=== PATIENT | male | born 1985 | race Caucasian/White ===

== ENCOUNTER → 2023-02-18 | Outpatient (CLI) | payer OTHER, SELFPAY ==
[2023-02-18 13:44] LABS: BILIRUBIN,DIRECT 0.2 MG/DL (<0.4); BILIRUBIN,TOTAL 0.6 MG/DL (0.3-1.2)
== END ==
LOC: M LAB 12:22
PROVIDERS: ATTEND Nurse Practitioner Family
DX: F10.20 Alcohol dependence, uncomplicated (principal)

== ENCOUNTER → 2023-03-02 | Outpatient (CLI) | payer OTHER ==
[2023-03-02 13:00] LABS: BILIRUBIN,DIRECT 0.2 MG/DL (<0.4); BILIRUBIN,TOTAL 0.6 MG/DL (0.3-1.2); TOTAL PROTEIN 6.8 G/DL (5.7-8.2)
== END ==
LOC: M LAB 11:42
PROVIDERS: ATTEND Nurse Practitioner Family
DX: F10.20 Alcohol dependence, uncomplicated (principal)

== ENCOUNTER → 2023-05-14 | Outpatient (CLI) | payer MEDICAID, OTHER ==
[2023-05-14 16:30] LABS: ALBUMIN 3.9 G/DL (3.2-5.2); BILIRUBIN,DIRECT 0.1 MG/DL (<0.4); BILIRUBIN,TOTAL 0.4 MG/DL (0.3-1.2); TOTAL PROTEIN 6.8 G/DL (5.7-8.2)
== END ==
LOC: M LAB 15:32
PROVIDERS: ATTEND Nurse Practitioner Family
DX: F41.1 Generalized anxiety disorder (principal); F10.20 Alcohol dependence, uncomplicated

== ENCOUNTER 2023-09-08 18:44 | Emergency (ER) | payer OTHER ==
[~2023-09-08] VITALS: Ht 162.6 cm; Wt 68.2 kg
[~2023-09-08 18:44] MED LIST: CHLO25CA PO
[2023-09-08] MEDS ORDERED: MED REC IN PROGRESS XX SCH (19:15)
[2023-09-08] MEDS ORDERED: LORazepam 2 MG/ML 1ML VIAL IM ONE (19:15)
[2023-09-08] MEDS ORDERED: HALOPERIDOL 5MG/ML 1ML VIAL IM ONE (19:15)
[2023-09-08 20:03] LABS: AMPHETAMINES LEVEL URINE NEGATIVE (NEGATIVE); BARBITURATES URINE NEGATIVE (NEGATIVE); COCAINE METABOLITE URINE NEGATIVE (NEGATIVE)
[2023-09-08 20:04] LABS: BENZODIAZEPINES URINE POSITIVE (NEGATIVE); CANNABINOIDS URINE POSITIVE (NEGATIVE); HEMATOCRIT 51.3 % (42.0-52.0); HEMOGLOBIN 17.5 g/dl (13.5-17.5); MEAN CORPUSCULAR HEMOGLOBIN 29.7 pg (27.0-33.0); MEAN CORPUSCULAR HGB CONC 34.1 g/dl (32.0-36.5); MEAN CORPUSCULAR VOLUME 87.1 fl (80.0-96.0); METHADONE URINE NEGATIVE (NEGATIVE); OPIATES URINE NEGATIVE (NEGATIVE); PHENCYCLIDINE URINE NEGATIVE (NEGATIVE); PLATELET COUNT, AUTOMATED 280 10^3/uL (150-450); RED BLOOD COUNT 5.89 10^6/uL (4.30-6.10); WHITE BLOOD COUNT 8.3 10^3/uL (4.0-10.0)
[2023-09-08 20:06] LABS: ETHYL ALCOHOL (ETHANOL) 0.295 % (0.000-0.010)
[2023-09-08 20:07] LABS: ALBUMIN 4.4 G/DL (3.2-5.2); ALKALINE PHOSPHATASE 87 U/L (46-116); ALT/SGPT 31 U/L (7.0-40); AST/SGOT 34 U/L (<34); BILIRUBIN,DIRECT 0.1 MG/DL (<0.4); BILIRUBIN,TOTAL 0.4 MG/DL (0.3-1.2); BLOOD UREA NITROGEN 14 MG/DL (9-23); CALCIUM LEVEL 9.5 MG/DL (8.5-10.1); CARBON DIOXIDE LEVEL 29 MMOL/L (20-31); CHLORIDE LEVEL 102 MMOL/L (98-107); CREATININE FOR GFR 0.81 MG/DL (0.70-1.30); GLOMERULAR FILTRATION RATE > 60.0 (>60); GLUCOSE, FASTING 90 MG/DL (60-100); SALICYLATE LEVEL < 3.0 MG/DL (<30); SODIUM LEVEL 140 MMOL/L (136-145); TOTAL PROTEIN 8.3 G/DL (5.7-8.2)
[2023-09-09] MEDS ORDERED: OXAZEPAM 15MG CAP PO ONE ×2 (06:35→15:30)
[2023-09-09] MEDS ORDERED: MULTIVITAMINS/MINERALS THERAP 1 TAB PO SCH (09:00)
[2023-09-09] MEDS ORDERED: THIAMINE 100 MG TAB PO SCH (09:00)
[2023-09-09] MEDS ORDERED: FOLIC ACID 1MG TAB PO SCH (09:00)
[2023-09-09] MEDS ORDERED: HOME MED LIST COMPLETE! XX SCH (09:50)
[2023-09-09] MEDS ORDERED: GABA600T4 PO (10:06)
[2023-09-09] MEDS ORDERED: MIRT-60 PO (10:06)
[2023-09-09] MEDS ORDERED: ACAM0.05 PO (10:07)
[2023-09-09] MEDS ORDERED: NALT50TA4 PO (10:07)
[2023-09-09] MEDS: GABAPENTIN 300 MG CAP PO SCH ×2 (10:40→16:00)
[2023-09-09] MEDS ORDERED: LORazepam 2 MG TAB PO PRN (13:40)
[2023-09-09 16:34] VITALS: BP 148/82; TEMP 98.5; O2SAT 98
== END 2023-09-09 16:16 | disposition home or self-care (01) ==
LOC: M ED 18:44
DX: F10.10 Alcohol abuse, uncomplicated (principal); F19.10 Other psychoactive substance abuse, uncomplicated; F32.A Depression, unspecified; Z79.891 Long term (current) use of opiate analgesic; Z79.899 Other long term (current) drug therapy
CPT/HCPCS: 80048; 80076; 80143; 80307; 82077; 84443; 85027; 87635; 96374; 96375; 99285; J1630; J2060

== ENCOUNTER 2023-09-21 23:22 | Inpatient (IN) | payer BC, OTHER ==
[~2023-09-21] VITALS: Ht 172.7 cm; Wt 71.9 kg
[~2023-09-21 23:22] MED LIST changes: +ACAM0.05 PO; +GABA600T4 PO; +MIRT-60 PO; +NALT50TA4 PO
[2023-09-21] MEDS ORDERED: NS 1,000 ML IV ONE (23:35)
[2023-09-22 00:08] LABS: BASO # 0.1 10^3/uL (0.0-0.2); BASO % 0.8 % (0.0-1.0); EOS # 0.1 10^3/uL (0.0-0.5); HEMATOCRIT 43.2 % (42.0-52.0); LYMPH # 2.7 10^3/uL (1.5-5.0); LYMPH % 34.6 % (24.0-44.0); MEAN CORPUSCULAR HEMOGLOBIN 30.1 pg (27.0-33.0); MEAN CORPUSCULAR HGB CONC 34.7 g/dl (32.0-36.5); MEAN CORPUSCULAR VOLUME 86.7 fl (80.0-96.0); MONO # 0.7 10^3/uL (0.0-0.8); NEUTROPHILS # 4.2 10^3/uL (1.5-8.5); NEUTROPHILS % 53.5 % (36.0-66.0); PLATELET COUNT, AUTOMATED 216 10^3/uL (150-450); RED BLOOD COUNT 4.98 10^6/uL (4.30-6.10); WHITE BLOOD COUNT 7.9 10^3/uL (4.0-10.0)
[2023-09-22 00:26] LABS: CPK CREATINE PHOSPHOKINASE 342 U/L (46-171); SALICYLATE LEVEL < 3.0 MG/DL (<30)
[2023-09-22 00:27] LABS: ALBUMIN 3.6 G/DL (3.2-5.2); ALKALINE PHOSPHATASE 101 U/L (46-116); ALT/SGPT 29 U/L (7.0-40); AST/SGOT 42 U/L (<34); BILIRUBIN,DIRECT 0.1 MG/DL (<0.4); BILIRUBIN,TOTAL 0.5 MG/DL (0.3-1.2); BLOOD UREA NITROGEN 14 MG/DL (9-23); CALCIUM LEVEL 8.2 MG/DL (8.5-10.1); CARBON DIOXIDE LEVEL 26 MMOL/L (20-31); CHLORIDE LEVEL 104 MMOL/L (98-107); CREATININE FOR GFR 0.82 MG/DL (0.70-1.30); GLOMERULAR FILTRATION RATE > 60.0 (>60); GLUCOSE, FASTING 116 MG/DL (60-100); POTASSIUM SERUM 3.7 MMOL/L (3.5-5.1); SODIUM LEVEL 140 MMOL/L (136-145)
[2023-09-22 00:29] LABS: THYROID STIMULATING HORMONE 2.404 uIU/ML (0.55-4.78)
[2023-09-22 00:57] LABS: ETHYL ALCOHOL (ETHANOL) 0.351 % (0.000-0.010)
[2023-09-22] MEDS ORDERED: LORazepam 2 MG/ML 1ML VIAL IV STA (01:59)
[2023-09-22 03:20] LABS: AMPHETAMINES LEVEL URINE NEGATIVE (NEGATIVE); BARBITURATES URINE NEGATIVE (NEGATIVE); BENZODIAZEPINES URINE NEGATIVE (NEGATIVE); COCAINE METABOLITE URINE NEGATIVE (NEGATIVE); METHADONE URINE NEGATIVE (NEGATIVE); OPIATES URINE NEGATIVE (NEGATIVE); PHENCYCLIDINE URINE NEGATIVE (NEGATIVE)
[2023-09-22 03:30] LABS: CANNABINOIDS URINE POSITIVE (NEGATIVE)
[2023-09-22] MEDS ORDERED: OXAZEPAM 15MG CAP PO ONE ×2 (08:45→16:50)
[2023-09-22] MEDS ORDERED: DIVA250T67 PO (11:00)
[2023-09-22] MEDS ORDERED: LORazepam 1 MG TAB PO ONE (11:05)
[2023-09-22] MEDS ORDERED: HOME MED LIST COMPLETE! XX SCH (11:15)
[2023-09-22] MEDS ORDERED: MAALOX 30 ML SUSP *UDC PO PRN (13:00)
[2023-09-22] MEDS ORDERED: MOM 30ML SUSPENSION UDC PO PRN (13:00)
[2023-09-22] MEDS ORDERED: ACETAMINOPHEN TAB 650MG DOSE (2X325MG) PO PRN (13:00)
[2023-09-22] MEDS: IBUPROFEN 400MG TAB PO PRN (14:22)
[2023-09-22] MEDS: MULTIVITAMINS/MINERALS THERAP 1 TAB PO SCH (14:22)
[2023-09-22] MEDS: LORazepam 2 MG TAB PO PRN ×5 (14:22→20:46)
[2023-09-22] MEDS: FOLIC ACID 1MG TAB PO SCH (14:22)
[2023-09-22] MEDS: THIAMINE 100 MG TAB PO SCH ×2 (14:23→21:04)
[2023-09-22] MEDS: diphenhydrAMINE 25MG CAP PO PRN (21:04)
[2023-09-22 21:23] VITALS: BP 137/86; TEMP 98.3; O2SAT 98
[2023-09-22 21:38] VITALS: BP 137/86
[2023-09-22] MEDS: OXAZEPAM 15MG CAP PO SCH (22:03)
[2023-09-22] MEDS: traZODone 50 MG TAB PO PRN (22:04)
[2023-09-23] VITALS (13 sets, daily range): BP systolic 111–144; BP diastolic 67–100; TEMP 97.9–99.2; O2SAT 95–100
[2023-09-23] MEDS: OXAZEPAM 15MG CAP PO SCH (04:53)
[2023-09-23] MEDS: LORazepam 2 MG TAB PO PRN ×5 (06:14→21:32)
[2023-09-23] MEDS: THIAMINE 100 MG TAB PO SCH ×2 (09:00→21:03)
[2023-09-23] MEDS: MULTIVITAMINS/MINERALS THERAP 1 TAB PO SCH (09:00)
[2023-09-23] MEDS ORDERED: chlordiazePOXIDE 25 MG CAP PO SCH ×2 (09:00→18:00)
[2023-09-23] MEDS: FOLIC ACID 1MG TAB PO SCH (09:04)
[2023-09-23] MEDS: GABAPENTIN 300 MG CAP PO SCH ×3 (09:55→21:04)
[2023-09-23] MEDS ORDERED: LORazepam 2 MG TAB PO ONE (10:00)
[2023-09-23] MEDS ORDERED: ISOVUE-370 76% 100ML VIAL As Ordered ONE (12:46)
[2023-09-23] MEDS ORDERED: chlordiazePOXIDE 25 MG CAP PO ONE (16:00)
[2023-09-23] MEDS: MIRTAZAPINE 15 MG TAB PO SCH (21:04)
[2023-09-23] MEDS: DIVALPROEX 250MG TAB PO SCH (21:04)
[2023-09-23] MEDS: IBUPROFEN 400MG TAB PO PRN (21:33)
[2023-09-23] MEDS: chlordiazePOXIDE 25 MG CAP PO SCH (23:01)
[2023-09-23 23:10] LABS: CK-MB VALUE MASS 1.3 NG/ML (<3.6)
[2023-09-23 23:12] LABS: CPK CREATINE PHOSPHOKINASE 177 U/L (46-171); MB/CK RELATIVE INDEX 0.73 (< OR =4)
[2023-09-24 01:45] VITALS: BP 126/78; TEMP 97.8; O2SAT 96
[2023-09-24] MEDS: chlordiazePOXIDE 25 MG CAP PO SCH ×4 (05:02→23:09)
[2023-09-24 05:45] VITALS: BP 120/72; TEMP 97.9; O2SAT 98
[2023-09-24 06:58] LABS: CHOLESTEROL RISK RATIO 3.32 (<5); HDL CHOLESTEROL 70.6 MG/DL (>40); LDL CHOLESTEROL 97.6 MG/DL (<100); NON-HDL-C 164.4 MG/DL
[2023-09-24 06:59] LABS: CK-MB VALUE MASS < 1.0 NG/ML (<3.6)
[2023-09-24 07:05] LABS: CPK CREATINE PHOSPHOKINASE 137 U/L (46-171); MB/CK RELATIVE INDEX 0.72 (< OR =4)
[2023-09-24] MEDS: THIAMINE 100 MG TAB PO SCH ×2 (09:12→21:03)
[2023-09-24] MEDS: GABAPENTIN 300 MG CAP PO SCH ×3 (09:12→21:03)
[2023-09-24] MEDS: FOLIC ACID 1MG TAB PO SCH (09:12)
[2023-09-24] MEDS: PANTOPRAZOLE 40MG TAB (PROTONIX) PO SCH (09:12)
[2023-09-24] MEDS: MULTIVITAMINS/MINERALS THERAP 1 TAB PO SCH (09:12)
[2023-09-24 10:11] LABS: ALBUMIN 3.7 G/DL (3.2-5.2); ALKALINE PHOSPHATASE 96 U/L (46-116); ALT/SGPT 25 U/L (7.0-40); AST/SGOT 40 U/L (<34); BILIRUBIN,DIRECT 0.2 MG/DL (<0.4); BILIRUBIN,TOTAL 0.8 MG/DL (0.3-1.2); TOTAL PROTEIN 7.1 G/DL (5.7-8.2)
[2023-09-24 14:00] VITALS: BP 120/72
[2023-09-24 17:08] VITALS: BP 150/96; TEMP 98.6; O2SAT 96
[2023-09-24] MEDS: DIVALPROEX 250MG TAB PO SCH (21:03)
[2023-09-24] MEDS: MIRTAZAPINE 15 MG TAB PO SCH (21:03)
[2023-09-24 22:00] VITALS: BP 118/73; TEMP 98.2; O2SAT 100
[2023-09-25] MEDS: chlordiazePOXIDE 25 MG CAP PO SCH ×4 (05:49→23:00)
[2023-09-25 06:33] VITALS: BP 100/53; TEMP 97.2
[2023-09-25 06:55] VITALS: BP 100/53
[2023-09-25] MEDS: GABAPENTIN 300 MG CAP PO SCH ×3 (09:04→21:34)
[2023-09-25] MEDS: MULTIVITAMINS/MINERALS THERAP 1 TAB PO SCH (09:04)
[2023-09-25] MEDS: FOLIC ACID 1MG TAB PO SCH (09:05)
[2023-09-25] MEDS: PANTOPRAZOLE 40MG TAB (PROTONIX) PO SCH (09:05)
[2023-09-25] MEDS: ACAMPROSATE CALCIUM 333MG TABLET (CAMPRAL) PO SCH ×2 (09:36→21:35)
[2023-09-25 14:00] VITALS: BP 138/94; TEMP 97.8; O2SAT 100
[2023-09-25 14:12] VITALS: BP 138/94
[2023-09-25] MEDS: MIRTAZAPINE 15 MG TAB PO SCH (21:34)
[2023-09-25] MEDS: DIVALPROEX 250MG TAB PO SCH (21:34)
[2023-09-25 22:00] VITALS: BP 138/94
[2023-09-25] MEDS: traZODone 50 MG TAB PO PRN (22:51)
[2023-09-25] MEDS: diphenhydrAMINE 25MG CAP PO PRN (22:51)
[2023-09-26] MEDS: chlordiazePOXIDE 25 MG CAP PO SCH ×3 (05:58→21:49)
[2023-09-26 06:31] VITALS: BP 120/57; TEMP 96.7; O2SAT 97
[2023-09-26 06:32] VITALS: BP 120/57
[2023-09-26] MEDS: GABAPENTIN 300 MG CAP PO SCH ×3 (08:30→21:50)
[2023-09-26] MEDS: FOLIC ACID 1MG TAB PO SCH (08:30)
[2023-09-26] MEDS: ACAMPROSATE CALCIUM 333MG TABLET (CAMPRAL) PO SCH ×2 (08:30→21:49)
[2023-09-26] MEDS: MULTIVITAMINS/MINERALS THERAP 1 TAB PO SCH (08:30)
[2023-09-26] MEDS: PANTOPRAZOLE 40MG TAB (PROTONIX) PO SCH (08:30)
[2023-09-26] MEDS: NALTREXONE 50 MG TAB PO SCH (08:30)
[2023-09-26] MEDS ORDERED: chlordiazePOXIDE 25 MG CAP PO SCH (09:00)
[2023-09-26 14:05] VITALS: BP 142/62
[2023-09-26] MEDS: MIRTAZAPINE 15 MG TAB PO SCH (21:49)
[2023-09-26] MEDS: DIVALPROEX 250MG TAB PO SCH (21:51)
[2023-09-26 22:27] VITALS: BP 142/62
[2023-09-27 06:39] VITALS: BP 142/62
[2023-09-27] MEDS: PANTOPRAZOLE 40MG TAB (PROTONIX) PO SCH (08:44)
[2023-09-27] MEDS: MULTIVITAMINS/MINERALS THERAP 1 TAB PO SCH (08:44)
[2023-09-27] MEDS: ACAMPROSATE CALCIUM 333MG TABLET (CAMPRAL) PO SCH ×2 (08:45→20:44)
[2023-09-27] MEDS: GABAPENTIN 300 MG CAP PO SCH ×3 (08:45→20:44)
[2023-09-27] MEDS: NALTREXONE 50 MG TAB PO SCH (08:45)
[2023-09-27] MEDS: chlordiazePOXIDE 25 MG CAP PO SCH ×3 (08:45→20:44)
[2023-09-27] MEDS: FOLIC ACID 1MG TAB PO SCH (08:45)
[2023-09-27 14:00] VITALS: BP 135/91
[2023-09-27 15:28] VITALS: BP 119/66; TEMP 98.3; O2SAT 100
[2023-09-27] MEDS: DIVALPROEX 250MG TAB PO SCH (20:44)
[2023-09-27] MEDS: MIRTAZAPINE 15 MG TAB PO SCH (20:44)
[2023-09-27 21:34] VITALS: BP 0/0
[2023-09-27 22:44] VITALS: BP 126/70; TEMP 98; O2SAT 99
[2023-09-28 06:54] VITALS: BP 118/56; TEMP 96.8; O2SAT 97
[2023-09-28] MEDS: NALTREXONE 50 MG TAB PO SCH (08:34)
[2023-09-28] MEDS: ACAMPROSATE CALCIUM 333MG TABLET (CAMPRAL) PO SCH ×2 (08:34→20:43)
[2023-09-28] MEDS: PANTOPRAZOLE 40MG TAB (PROTONIX) PO SCH (08:34)
[2023-09-28] MEDS: FOLIC ACID 1MG TAB PO SCH (08:34)
[2023-09-28] MEDS: GABAPENTIN 300 MG CAP PO SCH ×3 (08:35→20:43)
[2023-09-28] MEDS: chlordiazePOXIDE 25 MG CAP PO SCH ×3 (08:35→20:43)
[2023-09-28] MEDS: MULTIVITAMINS/MINERALS THERAP 1 TAB PO SCH (08:35)
[2023-09-28] MEDS ORDERED: PANT40TA29 PO (12:37)
[2023-09-28] MEDS ORDERED: CHLO25CA PO (12:37)
[2023-09-28 14:32] VITALS: BP 119/74
[2023-09-28 19:02] VITALS: BP 119/74; TEMP 98.1; O2SAT 100
[2023-09-28] MEDS: DIVALPROEX 250MG TAB PO SCH (20:43)
[2023-09-28] MEDS: MIRTAZAPINE 15 MG TAB PO SCH (20:43)
[2023-09-28 22:00] VITALS: BP 110/72
[2023-09-29 06:36] VITALS: BP 123/79; TEMP 96.7; O2SAT 99
[2023-09-29 06:43] VITALS: BP 123/79
== END 2023-09-29 07:52 | DRG 751 ==
LOC: M ED 23:22 → M ED INP 09-22 13:00 → M PSY 09-22 20:56
PROVIDERS: ADMIT Student in an Organized Health Care Education/Training Program; ATTEND Student in an Organized Health Care Education/Training Program
DX: F33.1 Major depressive disorder, recurrent, moderate (principal); F41.9 Anxiety disorder, unspecified; F10.20 Alcohol dependence, uncomplicated; F43.10 Post-traumatic stress disorder, unspecified; Z62.810 Personal history of physical and sexual abuse in childhood; Z63.5 Disruption of family by separation and divorce; Z79.899 Other long term (current) drug therapy; F12.90 Cannabis use, unspecified, uncomplicated

== ENCOUNTER 2024-03-10 17:39 | Emergency (ER) | payer OTHER, MEDICAID ==
[~2024-03-10] VITALS: Ht 165.1 cm; Wt 74.7 kg
[~2024-03-10 17:39] MED LIST changes: -CHLO25CA PO; +CHLO25CA10 PO; +DIVA250T67 PO; -MIRT-60 PO; +MIRT-89 PO; +PANT40TA29 PO
[2024-03-10 19:08] LABS: BASO % 0.6 % (0.0-1.0); EOS # 0.1 10^3/uL (0.0-0.5); EOS % 1.5 % (0.0-3.0); HEMATOCRIT 39.9 % (42.0-52.0); HEMOGLOBIN 14.1 g/dl (13.5-17.5); LYMPH # 1.7 10^3/uL (1.5-5.0); LYMPH % 22.9 % (24.0-44.0); MEAN CORPUSCULAR HGB CONC 35.3 g/dl (32.0-36.5); MEAN CORPUSCULAR VOLUME 87.7 fl (80.0-96.0); MONO # 0.6 10^3/uL (0.0-0.8); NEUTROPHILS # 4.8 10^3/uL (1.5-8.5); NEUTROPHILS % 66.6 % (36.0-66.0); PLATELET COUNT, AUTOMATED 196 10^3/uL (150-450); RED BLOOD COUNT 4.55 10^6/uL (4.30-6.10); WHITE BLOOD COUNT 7.2 10^3/uL (4.0-10.0)
[2024-03-10 19:39] LABS: ETHYL ALCOHOL (ETHANOL) 0.058 % (0.000-0.010); LIPASE 21 U/L (12-53)
[2024-03-10 19:40] LABS: AMYLASE 104 U/L (30-118)
[2024-03-10 19:44] LABS: ALBUMIN 3.9 G/DL (3.2-5.2); ALKALINE PHOSPHATASE 99 U/L (46-116); ALT/SGPT 44 U/L (7.0-40); AST/SGOT 34 U/L (<34); BILIRUBIN,DIRECT < 0.1 MG/DL (<0.4); BILIRUBIN,TOTAL 0.2 MG/DL (0.3-1.2); BLOOD UREA NITROGEN 11 MG/DL (9-23); CALCIUM LEVEL 9.2 MG/DL (8.5-10.1); CARBON DIOXIDE LEVEL 31 MMOL/L (20-31); CHLORIDE LEVEL 107 MMOL/L (98-107); CREATININE FOR GFR 0.84 MG/DL (0.70-1.30); GLOMERULAR FILTRATION RATE > 60.0 (>60); GLUCOSE, FASTING 103 MG/DL (60-100); POTASSIUM SERUM 3.7 MMOL/L (3.5-5.1); SODIUM LEVEL 143 MMOL/L (136-145); TOTAL PROTEIN 6.5 G/DL (5.7-8.2)
[2024-03-10 21:17] LABS: RSV AMPLIFICATION NEGATIVE (NEGATIVE)
[2024-03-10 22:26] LABS: AMPHETAMINES LEVEL URINE NEGATIVE (NEGATIVE)
[2024-03-10 22:27] LABS: BARBITURATES URINE NEGATIVE (NEGATIVE); BENZODIAZEPINES URINE NEGATIVE (NEGATIVE); COCAINE METABOLITE URINE NEGATIVE (NEGATIVE); METHADONE URINE NEGATIVE (NEGATIVE); OPIATES URINE NEGATIVE (NEGATIVE); PHENCYCLIDINE URINE NEGATIVE (NEGATIVE)
[2024-03-10 22:36] LABS: CANNABINOIDS URINE POSITIVE (NEGATIVE)
[2024-03-11] MEDS: OXAZEPAM 15MG CAP PO ONE ×2 (06:12→09:42)
[2024-03-11] MEDS: IBUPROFEN 600MG TAB PO ONE (08:15)
[2024-03-11] MEDS: ONDANSETRON 4MG ORAL DISINTEGRATING TAB PO ONE (08:15)
[2024-03-11] MEDS ORDERED: HYDR50TA70 PO (09:45)
[2024-03-11] MEDS ORDERED: OMEGCAP4 PO (09:45)
[2024-03-11] MEDS ORDERED: NICO2LOZ29 MT (09:45)
[2024-03-11] MEDS ORDERED: SERT25TA85 PO (09:45)
[2024-03-11] MEDS ORDERED: CLONI1TA PO (09:45)
[2024-03-11] MEDS ORDERED: MULT-40 PO (09:45)
[2024-03-11] MEDS ORDERED: FOLI1TAB11 PO (09:45)
[2024-03-11] MEDS ORDERED: MAGN400T2 PO (09:45)
[2024-03-11] MEDS ORDERED: PANT40TA29 PO (09:45)
[2024-03-11] MEDS ORDERED: HOME MED LIST COMPLETE! XX SCH (09:50)
[2024-03-11 11:59] VITALS: TEMP 98
[2024-03-11 13:31] VITALS: O2SAT 98
[2024-03-11 13:36] VITALS: BP 148/88
== END 2024-03-11 13:40 | disposition short-term general hospital (02) ==
LOC: M ED 17:39
DX: F10.130 Alcohol abuse with withdrawal, uncomplicated (principal); Z79.899 Other long term (current) drug therapy

== ENCOUNTER 2024-04-04 14:25 | Emergency (ER) | payer OTHER ==
[~2024-04-04] VITALS: Ht 165.1 cm; Wt 76.3 kg
[~2024-04-04 14:25] MED LIST changes: +CLONI1TA PO; +FOLI1TAB11 PO; +HYDR50TA70 PO; +MAGN400T2 PO; +MULT-40 PO; +NICO2LOZ29 MT; +OMEGCAP4 PO; +SERT25TA85 PO
[2024-04-04 15:03] VITALS: BP 139/81; TEMP 98; O2SAT 95
[2024-04-05] MEDS ORDERED: ARIP1TAB43 PO (09:12)
[2024-04-05] MEDS ORDERED: CHLO25CA10 PO (13:30)
== END 2024-04-04 15:34 | disposition left against medical advice (07) ==
LOC: EDBD 14:25 → M ED 14:25
DX: Z53.21 Procedure and treatment not carried out due to patient leaving prior to being seen by health care provider (principal)

== ENCOUNTER 2024-04-05 08:04 | Inpatient (IN) | payer OTHER ==
[~2024-04-05] VITALS: Ht 162.6 cm; Wt 73.4 kg
[2024-04-05 08:43] LABS: BASO # 0.1 10^3/uL (0.0-0.2); BASO % 0.6 % (0.0-1.0); EOS % 0.4 % (0.0-3.0); HEMATOCRIT 41.8 % (42.0-52.0); HEMOGLOBIN 14.5 g/dl (13.5-17.5); LYMPH # 2.2 10^3/uL (1.5-5.0); LYMPH % 25.7 % (24.0-44.0); MEAN CORPUSCULAR HEMOGLOBIN 29.5 pg (27.0-33.0); MEAN CORPUSCULAR HGB CONC 34.7 g/dl (32.0-36.5); MEAN CORPUSCULAR VOLUME 85.1 fl (80.0-96.0); MONO # 0.6 10^3/uL (0.0-0.8); MONO % 6.9 % (2.0-8.0); NEUTROPHILS # 5.6 10^3/uL (1.5-8.5); NEUTROPHILS % 66.2 % (36.0-66.0); PLATELET COUNT, AUTOMATED 275 10^3/uL (150-450); RED BLOOD COUNT 4.91 10^6/uL (4.30-6.10); WHITE BLOOD COUNT 8.5 10^3/uL (4.0-10.0)
[2024-04-05] MEDS: PANTOPRAZOLE 40MG VIAL IV ONE (08:50)
[2024-04-05] MEDS: LORazepam 2 MG/ML 1ML VIAL IV STA (08:50)
[2024-04-05] MEDS: THIAMINE 100 MG TAB PO SCH (08:50)
[2024-04-05] MEDS: FOLIC ACID 1MG TAB PO SCH (08:50)
[2024-04-05] MEDS: NS 1,000 ML IV ONE (08:51)
[2024-04-05 08:54] LABS: INR 1.13; PROTHROMBIN TIME 14.2 SECONDS (12.5-14.5)
[2024-04-05] MEDS: MULTIVITAMINS/MINERALS THERAP 1 TAB PO SCH (08:56)
[2024-04-05 09:08] LABS: ETHYL ALCOHOL (ETHANOL) 0.076 % (0.000-0.010); LIPASE 20 U/L (12-53)
[2024-04-05 09:10] LABS: ALBUMIN 4.1 G/DL (3.2-5.2); ALKALINE PHOSPHATASE 87 U/L (46-116); ALT/SGPT 29 U/L (7.0-40); AST/SGOT 29 U/L (<34); BILIRUBIN,DIRECT 0.2 MG/DL (<0.4); BILIRUBIN,TOTAL 0.9 MG/DL (0.3-1.2); BLOOD UREA NITROGEN 11 MG/DL (9-23); CALCIUM LEVEL 9.3 MG/DL (8.5-10.1); CARBON DIOXIDE LEVEL 20 MMOL/L (20-31); CHLORIDE LEVEL 103 MMOL/L (98-107); CREATININE FOR GFR 0.67 MG/DL (0.70-1.30); GLOMERULAR FILTRATION RATE > 60.0 (>60); GLUCOSE, FASTING 163 MG/DL (60-100); MAGNESIUM LEVEL 1.6 MG/DL (1.8-2.4); POTASSIUM SERUM 3.6 MMOL/L (3.5-5.1); SODIUM LEVEL 139 MMOL/L (136-145); TOTAL PROTEIN 7.4 G/DL (5.7-8.2)
[2024-04-05] MEDS ORDERED: ARIP1TAB43 PO (09:12)
[2024-04-05] MEDS: MAG SULF 1GM/100ML (MAG RUN) 1 GM in IV 1 EA IV ONE (09:35)
[2024-04-05] MEDS: MAALOX 30 ML SUSP *UDC PO ONE (09:56)
[2024-04-05] MEDS: LORazepam 2 MG TAB PO PRN (09:56)
[2024-04-05] MEDS ORDERED: MAALOX 30 ML SUSP *UDC PO PRN (12:55)
[2024-04-05] MEDS ORDERED: CHLO25CA10 PO (13:30)
[2024-04-05] MEDS ORDERED: HOME MED LIST COMPLETE! XX SCH (13:40)
[2024-04-05] MEDS ORDERED: LORazepam 2 MG TAB PO PRN (13:45)
[2024-04-05 16:10] VITALS: BP 139/78; TEMP 98; O2SAT 98
[2024-04-05] MEDS: ENOXAPARIN 40MG/0.4ML SYRINGE (J1650 PER 10MG) SC SCH (16:16)
[2024-04-05] MEDS: chlordiazePOXIDE 25 MG CAP PO SCH (18:04)
[2024-04-05 18:38] VITALS: BP 148/90; PULSE 73; O2SAT 97
[2024-04-05 18:50] VITALS: BP 132/75; TEMP 98; O2SAT 97
[2024-04-05] MEDS: MOM 30ML SUSPENSION UDC PO PRN (19:01)
[2024-04-05 20:00] VITALS: PULSE 80
[2024-04-05] MEDS ORDERED: ACETAMINOPHEN TAB 650MG DOSE (2X325MG) PO PRN (20:45)
[2024-04-05] MEDS: MORPHINE 2 MG/ML 1ML VIAL IV ONE (20:58)
[2024-04-05] MEDS: ACETAMINOPHEN TAB 650MG DOSE (2X325MG) PO PRN (20:58)
[2024-04-05] MEDS ORDERED: THIAMINE 100 MG TAB PO SCH (21:00)
[2024-04-05] MEDS: DIVALPROEX 250MG *ER* TAB PO SCH (22:06)
[2024-04-05] MEDS: HYDROMORPHONE HCL 0.5 MG/ 0.5 ML SYRINGE IV PRN (23:19)
[2024-04-05 23:33] VITALS: BP 121/73; TEMP 97.8; O2SAT 99
[2024-04-06] VITALS (7 sets, daily range): BP systolic 121–139; BP diastolic 65–95; TEMP 97.2–97.7; O2SAT 97–98
[2024-04-06] MEDS: LORazepam 2 MG TAB PO PRN (00:31)
[2024-04-06 06:28] LABS: HEMATOCRIT 40.1 % (42.0-52.0); HEMOGLOBIN 13.6 g/dl (13.5-17.5); MEAN CORPUSCULAR HEMOGLOBIN 29.6 pg (27.0-33.0); MEAN CORPUSCULAR HGB CONC 33.9 g/dl (32.0-36.5); MEAN CORPUSCULAR VOLUME 87.2 fl (80.0-96.0); PLATELET COUNT, AUTOMATED 177 10^3/uL (150-450); WHITE BLOOD COUNT 4.9 10^3/uL (4.0-10.0)
[2024-04-06 06:53] LABS: BLOOD UREA NITROGEN 11 MG/DL (9-23); CALCIUM LEVEL 8.9 MG/DL (8.5-10.1); CARBON DIOXIDE LEVEL 27 MMOL/L (20-31); CHLORIDE LEVEL 105 MMOL/L (98-107); CREATININE FOR GFR 0.69 MG/DL (0.70-1.30); GLOMERULAR FILTRATION RATE > 60.0 (>60); GLUCOSE, FASTING 87 MG/DL (60-100); MAGNESIUM LEVEL 2.2 MG/DL (1.8-2.4); POTASSIUM SERUM 3.6 MMOL/L (3.5-5.1); SODIUM LEVEL 135 MMOL/L (136-145)
[2024-04-06 07:05] LABS: PROCALCITONIN <0.04 ng/ml
[2024-04-06] MEDS: PANTOPRAZOLE 40MG VIAL IV SCH (08:23)
[2024-04-06] MEDS: chlordiazePOXIDE 25 MG CAP PO SCH (08:24)
[2024-04-06] MEDS ORDERED: FOLIC ACID 1MG TAB PO SCH (09:00)
[2024-04-06] MEDS ORDERED: MULTIVITAMINS/MINERALS THERAP 1 TAB PO SCH (09:00)
[2024-04-06] MEDS: KETOROLAC 30 MG/ML 1ML VIAL IV PRN (11:09)
[2024-04-06] MEDS: SERTRALINE HCL 25 MG TABLET PO SCH (13:04)
[2024-04-06] MEDS: ARIPiprazole 10 MG TAB PO SCH (13:52)
[2024-04-06] MEDS ORDERED: GABAPENTIN 300 MG CAP PO SCH (16:00)
== END 2024-04-06 14:35 | disposition left against medical advice (07) | DRG 282 ==
LOC: M ED 08:04 → M ED INP 12:54 → M PCU 15:36
PROVIDERS: ADMIT Internal Medicine; ATTEND Internal Medicine
DX: K85.90 Acute pancreatitis without necrosis or infection, unspecified (principal); F10.139 Alcohol abuse with withdrawal, unspecified; F31.9 Bipolar disorder, unspecified; E78.5 Hyperlipidemia, unspecified; F17.200 Nicotine dependence, unspecified, uncomplicated; Z79.899 Other long term (current) drug therapy; Z76.5 Malingerer [conscious simulation]; Z59.00 Homelessness unspecified

== ENCOUNTER 2024-05-23 21:04 | Emergency (ER) | payer MEDICAID, OTHER ==
[~2024-05-23] VITALS: Ht 162.6 cm; Wt 79.1 kg
[~2024-05-23 21:04] MED LIST changes: +ARIP20TA51 PO; +GABA-1490 PO; -GABA600T4 PO
[2024-05-23 22:02] LABS: BASO % 0.6 % (0.0-1.0); EOS # 0.2 10^3/uL (0.0-0.5); EOS % 3.2 % (0.0-3.0); HEMATOCRIT 39.6 % (42.0-52.0); HEMOGLOBIN 14.2 g/dl (13.5-17.5); LYMPH # 2.1 10^3/uL (1.5-5.0); LYMPH % 41.4 % (24.0-44.0); MEAN CORPUSCULAR HEMOGLOBIN 30.2 pg (27.0-33.0); MEAN CORPUSCULAR HGB CONC 35.9 g/dl (32.0-36.5); MEAN CORPUSCULAR VOLUME 84.3 fl (80.0-96.0); MONO # 0.4 10^3/uL (0.0-0.8); MONO % 8.3 % (2.0-8.0); NEUTROPHILS # 2.3 10^3/uL (1.5-8.5); NEUTROPHILS % 46.3 % (36.0-66.0); PLATELET COUNT, AUTOMATED 183 10^3/uL (150-450); WHITE BLOOD COUNT 5.1 10^3/uL (4.0-10.0)
[2024-05-23 22:29] LABS: AMPHETAMINES LEVEL URINE NEGATIVE (NEGATIVE); BARBITURATES URINE NEGATIVE (NEGATIVE); BENZODIAZEPINES URINE NEGATIVE (NEGATIVE); COCAINE METABOLITE URINE NEGATIVE (NEGATIVE); METHADONE URINE NEGATIVE (NEGATIVE); OPIATES URINE NEGATIVE (NEGATIVE); PHENCYCLIDINE URINE NEGATIVE (NEGATIVE)
[2024-05-23 22:31] LABS: ETHYL ALCOHOL (ETHANOL) 0.149 % (0.000-0.010)
[2024-05-23 22:32] LABS: CANNABINOIDS URINE POSITIVE (NEGATIVE)
[2024-05-23 22:32] LABS: CK-MB VALUE MASS < 1.0 NG/ML (<3.6)
[2024-05-23 22:33] LABS: SALICYLATE LEVEL < 3.0 MG/DL (<30)
[2024-05-23 22:35] LABS: THYROID STIMULATING HORMONE 2.121 uIU/ML (0.55-4.78)
[2024-05-23 22:37] LABS: ALBUMIN 3.5 G/DL (3.2-5.2); ALKALINE PHOSPHATASE 119 U/L (46-116); ALT/SGPT 56 U/L (7.0-40); AST/SGOT 40 U/L (<34); BILIRUBIN,DIRECT < 0.1 MG/DL (<0.4); BILIRUBIN,TOTAL 0.2 MG/DL (0.3-1.2); BLOOD UREA NITROGEN 13 MG/DL (9-23); CALCIUM LEVEL 8.4 MG/DL (8.5-10.1); CARBON DIOXIDE LEVEL 26 MMOL/L (20-31); CHLORIDE LEVEL 111 MMOL/L (98-107); CPK CREATINE PHOSPHOKINASE 221 U/L (46-171); GLOMERULAR FILTRATION RATE > 60.0 (>60); GLUCOSE, FASTING 144 MG/DL (60-100); MB/CK RELATIVE INDEX 0.45 (< OR =4); POTASSIUM SERUM 3.6 MMOL/L (3.5-5.1); SODIUM LEVEL 144 MMOL/L (136-145); TOTAL PROTEIN 6.5 G/DL (5.7-8.2)
[2024-05-23] MEDS: diazePAM 10 MG TAB PO ONE (22:43)
[2024-05-24] MEDS ORDERED: NEUR600T PO (00:54)
[2024-05-24] MEDS ORDERED: HOME MED LIST COMPLETE! XX SCH (01:00)
[2024-05-24] MEDS: diazePAM 10 MG TAB PO ONE (02:45)
[2024-05-24] MEDS: chlordiazePOXIDE 25 MG CAP PO STA (05:59)
[2024-05-24] MEDS: THIAMINE 100 MG TAB PO SCH (05:59)
[2024-05-24] MEDS ORDERED: FOLIC ACID 1MG TAB PO SCH (09:00)
[2024-05-24] MEDS ORDERED: MULTIVITAMINS/MINERALS THERAP 1 TAB PO SCH (09:00)
[2024-05-24 10:00] VITALS: BP 141/97; TEMP 98.3; O2SAT 95
== END 2024-05-24 10:04 | disposition short-term general hospital (02) ==
LOC: M ED 21:04
DX: F10.129 Alcohol abuse with intoxication, unspecified (principal); F32.A Depression, unspecified; F19.10 Other psychoactive substance abuse, uncomplicated; Z79.899 Other long term (current) drug therapy

== ENCOUNTER 2025-01-30 09:54 | Emergency (ER) | payer OTHER ==
[~2025-01-30] VITALS: Ht 163.8 cm; Wt 72.0 kg
[~2025-01-30 09:54] MED LIST changes: +NEUR600T PO; +ONDA-282 PO
[2025-01-30 09:56] VITALS: TEMP 97.4; O2SAT 96
[2025-01-30] MEDS ORDERED: KETOROLAC 60MG 2ML VIAL IM ONE (11:20)
[2025-01-30] MEDS: KETOROLAC 30 MG/ML 1ML VIAL IV ONE (11:46)
[2025-01-30 11:48] LABS: BASO % 0.5 % (0.0-1.0); EOS # 0.1 10^3/uL (0.0-0.5); EOS % 1.1 % (0.0-3.0); HEMOGLOBIN 13.7 g/dl (13.5-17.5); LYMPH # 1.6 10^3/uL (1.5-5.0); LYMPH % 21.4 % (24.0-44.0); MEAN CORPUSCULAR HEMOGLOBIN 28.7 pg (27.0-33.0); MEAN CORPUSCULAR HGB CONC 33.4 g/dl (32.0-36.5); MEAN CORPUSCULAR VOLUME 85.8 fl (80.0-96.0); MONO # 0.5 10^3/uL (0.0-0.8); MONO % 6.8 % (2.0-8.0); NEUTROPHILS # 5.2 10^3/uL (1.5-8.5); NEUTROPHILS % 69.9 % (36.0-66.0); PLATELET COUNT, AUTOMATED 182 10^3/uL (150-450); RED BLOOD COUNT 4.78 10^6/uL (4.30-6.10); WHITE BLOOD COUNT 7.5 10^3/uL (4.0-10.0)
[2025-01-30 13:09] VITALS: BP 161/95
== END 2025-01-30 13:10 | disposition home or self-care (01) ==
LOC: M ED 09:54
DX: S33.5XXA Sprain of ligaments of lumbar spine, initial encounter (principal); X58.XXXA Exposure to other specified factors, initial encounter; Y92.009 Unspecified place in unspecified non-institutional (private) residence as the place of occurrence of the external cause; Y93.9 Activity, unspecified; Y99.9 Unspecified external cause status; F41.9 Anxiety disorder, unspecified; F32.9 Major depressive disorder, single episode, unspecified; R56.9 Unspecified convulsions; J45.909 Unspecified asthma, uncomplicated; Z87.19 Personal history of other diseases of the digestive system; F10.130 Alcohol abuse with withdrawal, uncomplicated; F17.200 Nicotine dependence, unspecified, uncomplicated; F19.10 Other psychoactive substance abuse, uncomplicated
CPT/HCPCS: 72131; 80047; 85025; 96374; 99283; J1885

== ENCOUNTER → 2025-02-07 | Outpatient (CLI) | payer OTHER | LOC: M OUTALCOH 08:22 | PROVIDERS: ATTEND Psychiatry & Neurology Psychiatry | DX: F10.20 Alcohol dependence, uncomplicated (principal); F12.20 Cannabis dependence, uncomplicated; Z72.0 Tobacco use ==

== ENCOUNTER → 2025-05-18 | Outpatient (REF) | payer OTHER ==
[2025-05-18 12:31] LABS: APPEARANCE, URINE CLEAR (CLEAR); BACTERIA, URINE AUTO NEGATIVE (NEGATIVE); BILIRUBIN, URINE AUTO NEGATIVE (NEGATIVE); BLOOD, URINE BLOOD NEGATIVE (NEGATIVE); GLUCOSE, URINE (UA) AUTO NEGATIVE (NEGATIVE); KETONE, URINE AUTO NEGATIVE (NEGATIVE); LEUKOCYTE ESTERASE, URINE AUTO NEGATIVE (NEGATIVE); MUCUS, URINE SMALL (NEGATIVE); NITRITE, URINE AUTO NEGATIVE (NEGATIVE); PROTEIN, URINE AUTO NEGATIVE (NEGATIVE); RBC, URINE AUTO 0 /HPF (0-3); SPECIFIC GRAVITY URINE AUTO 1.025 (1.002-1.035); SQUAMOUS EPITHELIAL CELL UR AU 0 /HPF (0-6); UROBILINOGEN, URINE AUTO 0.2 mg/dL (0.0-2.0); WBC, URINE AUTO 0 /HPF (0-3)
[2025-05-18 13:35] LABS: ALT/SGPT 29 U/L (7.0-40); AST/SGOT 27 U/L (<34); BASO # 0.0 10^3/uL (0.0-0.2); BASO % 0.5 % (0.0-1.0); CALCIUM LEVEL 9.3 MG/DL (8.5-10.1); CARBON DIOXIDE LEVEL 27 MMOL/L (20-31); CHLORIDE LEVEL 103 MMOL/L (98-107); CHOLESTEROL LEVEL 240 MG/DL (<200); CHOLESTEROL RISK RATIO 3.73 (<5); CREATININE FOR GFR 0.78 MG/DL (0.70-1.30); EOS # 0.1 10^3/uL (0.0-0.5); EOS % 2.1 % (0.0-3.0); GLOMERULAR FILTRATION RATE > 90.0 (>60); LDL CHOLESTEROL 130.6 MG/DL (<100); LYMPH # 1.4 10^3/uL (1.5-5.0); LYMPH % 23.8 % (24.0-44.0); MONO # 0.5 10^3/uL (0.0-0.8); MONO % 7.8 % (2.0-8.0); NEUTROPHILS # 4.0 10^3/uL (1.5-8.5); NEUTROPHILS % 65.6 % (36.0-66.0); NON-HDL-C 175.8 MG/DL; PLATELET COUNT, AUTOMATED 202 10^3/uL (150-450); POTASSIUM SERUM 4.0 MMOL/L (3.5-5.1); SODIUM LEVEL 141 MMOL/L (136-145); TRIGLYCERIDES LEVEL 226 MG/DL (<150)
[2025-05-18 13:36] LABS: HEPATITIS B SURFACE ANTIBODY POSITIVE (POSITIVE)
[2025-05-18 13:51] LABS: ESTIMATED AVERAGE GLUCOSE 105.0 MG/DL (60-110)
[2025-05-18 14:02] LABS: HIV 1&2 SCREEN NEGATIVE (NEGATIVE)
[2025-05-18 14:10] LABS: HEPATITIS C VIRUS ABY INDEX < 0.02 INDEX (<0.8)
== END ==
LOC: EDBD → M SFHCLERA 09:22 → MERGE 09:22
PROVIDERS: ATTEND Internal Medicine
DX: Z00.01 Encounter for general adult medical examination with abnormal findings (principal); Z11.3 Encounter for screening for infections with a predominantly sexual mode of transmission

== ENCOUNTER → 2025-07-26 | Outpatient (REF) | payer OTHER | LOC: M LAB REF 11:23 | PROVIDERS: ATTEND Physician Assistant Medical | DX: R10.13 Epigastric pain (principal); R19.7 Diarrhea, unspecified; K21.9 Gastro-esophageal reflux disease without esophagitis ==

== ENCOUNTER → 2025-08-30 | Outpatient (CLI) | payer OTHER ==
[~2025-08-30] MED LIST changes: +PROHANCE 279.3MG/ML 15ML VIAL ONE
== END ==
LOC: M PLAIMG 07:36
PROVIDERS: ATTEND Physician Assistant Medical
DX: R10.13 Epigastric pain (principal); R19.7 Diarrhea, unspecified; K21.9 Gastro-esophageal reflux disease without esophagitis; K85.90 Acute pancreatitis without necrosis or infection, unspecified; K76.0 Fatty (change of) liver, not elsewhere classified
CPT/HCPCS: 74183; A9579